=== PATIENT | male | born 1945 | race Caucasian/White ===

== ENCOUNTER 2025-09-15 11:11 | Day surgery (SDC) | payer MEDICARE, BC ==
[~2025-09-15] VITALS: Ht 180.3 cm; Wt 65.3 kg
[~2025-09-15 11:11] MED LIST: ACET-890 PO; APIX5TAB3 PO; CARCD120C PO; CHOL100046 PO; FERR-119 PO; HYDROmorphone/PF 0.2 MG/ML SYRINGE IV PRN; LOSA-415 PO; MULT-1249 PO; PANT40TA54 PO; ROSU40TA89 PO; SENN-360 PO; SITA100T11 PO; TAMS-55 PO; acetaminophen 1,000mg/100ml IV 100 ML IV PRN; hydrALAZINE 20mg/ml inj. IV PRN; labetalol 20mg/4ml (5mg/ml) syringe IV PRN; morphine 4 MG/ML inj SYRINge IV PRN; ondansetron/PF 4mg/2ml inj IV PRN; ringers solution, lacted 1,000 ML IV SCH
[2025-09-15 11:50] VITALS: BP 137/80; PULSE 75; RESP 16; TEMP 97.7; O2SAT 97
[2025-09-15] MEDS ORDERED: MIDAZolam 1mg/ml 10ml vial IV ONE (11:50)
[2025-09-15] MEDS ORDERED: fentaNYL/PF 50MCG/1 ML 2ML syringe IV ONE (11:50)
[2025-09-15] MEDS ORDERED: normal saline 1000ml 1,000 ML IV SCH (11:50)
[2025-09-15 12:08] LABS: MEAN PLATELET VOLUME 8.2 FL (7.4-10.4); RED CELL DISTRIBUTION WIDTH 15.6 % (11.5-14.5)
[2025-09-15 12:19] LABS: INR 1.2 INR
[2025-09-15] MEDS ORDERED: midazolam 1 mg/ML 2ml injection ONE (12:27)
[2025-09-15] MEDS ORDERED: fentaNYL/PF 50MCG/1 ML 2ML syringe ONE (12:27)
[2025-09-15 12:32] LABS: CREATININE 1.39 MG/DL (0.60-1.10); TOTAL CARBON DIOXIDE 31.5 MMOL/L (24-32); eCRCL 40 ML/MIN; eGFR 49 ML/MIN
[2025-09-15 13:45] VITALS: BP 130/79; PULSE 70; RESP 13; O2SAT 96
[2025-09-15 14:00] VITALS: BP 120/76; PULSE 70; RESP 13; O2SAT 95
[2025-09-15] MEDS ORDERED: CLOP-32 PO (14:13)
[2025-09-15] MEDS ORDERED: ASPI-1265 PO (14:14)
[2025-09-15 14:15] VITALS: BP 117/79; PULSE 66; RESP 12; O2SAT 94
[2025-09-15 14:30] VITALS: BP 124/73; PULSE 66; RESP 12; O2SAT 95
--- NOTE | 2025-09-15 19:04 | CARDIOLOGY REPORT ---
APPROVED REPORT EXAM: Focused, limited transesophageal echocardiogram with color flow Doppler. Patient Location: [facility] Blood Pressure: 146/79 mmHg Heart Rate: 62-87 bpm Rhythm: ATRIAL FIBRILLATION Indications POST WATCHMAN FLX POLINA CLOSURE DEVICE IMPLANTATION FOLLOW UP EVALUATE DEVICE FOR THROMBUS, POSITION, AND SEAL 24 mm WATCHMAN FLX POLINA CLOSURE DEVICE DALE PROBE PASSED BY: Villa Krause MD Thaw Shed Heater Tender: Villa Krause MD Previous echo: 08/12/25 [facility] ER (EF 55-60%, small L to R shunt s/p transseptal puncture, mild MR, mild TR, no pericardial effusion) LEFT VENTRICLE Normal LV size and wall thickness. Overall systolic function is normal. LVEF is 55-60%. ATRIA LA is moderately dilated. 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 Left upper pulmonary vein identified. Successfully occluded left atrial appendage with well visualized Watchman device well positioned without thrombus. No residual flow detected around device in all vi ews. PERICARDIUM Normal pericardium. No effusion. CONCLUSION Normal LV size and wall thickness. Overall systolic function is normal. LVEF is 55-60%. LA is moderately dilated. 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 Left upper pulmonary vein identified. Successfully occluded left atrial appendage with well visualized Watchman device well positioned without thrombus. No residual flow detected around device in all views. Normal pericardium. No effusion. Conclusion Normal LV size and wall thickness. Overall systolic function is normal. LVEF is 55-60%. LA is moderately dilated. 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 Left upper pulmonary vein identified. Successfully occluded left atrial appendage with well visualized Watchman device well positioned without thrombus. No residual flow detected around device in all views. Normal pericardium. No effusion.
== END 2025-09-15 14:50 | disposition home or self-care (01) ==
LOC: SSTAY O 11:11
PROVIDERS: ATTEND Student in an Organized Health Care Education/Training Program
DX: I48.0 Paroxysmal atrial fibrillation (principal); E11.9 Type 2 diabetes mellitus without complications; E78.5 Hyperlipidemia, unspecified; I65.23 Occlusion and stenosis of bilateral carotid arteries; I35.0 Nonrheumatic aortic (valve) stenosis; I10 Essential (primary) hypertension; Z86.73 Personal history of transient ischemic attack (TIA), and cerebral infarction without residual deficits; Z95.818 Presence of other cardiac implants and grafts; Z88.8 Allergy status to other drugs, medicaments and biological substances; Z98.890 Other specified postprocedural states
CPT/HCPCS: 36415; 80048; 82948; 85025; 85610; 93312; 93325; J2250; J3010; J7030; 99152